=== PATIENT | male | born 1965 | race Asian ===

== ENCOUNTER 2020-11-08 18:52 | Emergency (ER) | payer OTHER ==
[~2020-11-08] VITALS: Ht 182.9 cm; Wt 85.1 kg
[~2020-11-08 18:52] MED LIST: ACET325T26 PO; ALBU0.63 NEB; ALBU90AE INH; ALLO100T64 PO; AMLO-211 PO; ASPI81TA45 PO; BLOO-1340 EXT; BUPR150T6 PO; DOCU100C33 PO; EMPA25TA PO; FLUT15.845 NS; GABA-826 PO; GEMF600T8 PO; HYDR25TA6 PO; INSU100C5 SQ-INSULIN; INSU100I13 SQ-INSULIN; INSU100V8 SQ-INSULIN; LOSA100T14 PO; METF850T10 PO; METH500T7 PO; METO25TA35 PO; OXYC5TAB3 PO; PANT40TA6 PO; POTA10TA4 PO; PRAZ5CAP2 PO; ROSU20TA2 PO; ZOLP10TA PO
[2020-11-08 19:52] LABS: MEAN CORPUSCULAR HEMOGLOBIN 29.5 pg (27.5-34.5); MEAN CORPUSCULAR HGB CONC 32.4 g/dL (33.2-36.2); MEAN PLATELET VOLUME 7.6 fL (7.4-10.4); PLATELET COUNT 264 x10^3/uL (130-400); RED BLOOD COUNT 3.44 x10^6/uL (4.38-5.82); RED CELL DISTRIBUTION WIDTH 16.3 % (9.4-14.8)
--- NOTE | 2020-11-08 20:00 | NUR ---
LATE ENTRY D/T CARE: PT CAME INTO ED DUE TO CHEST PRESSURE AND SOB, STATES "I FEEL LIKE IM HAVING A HARD TIME BREATHING" PT RESTING ON GURNEY, PLACED ON SPO2/BP/ECG MONITORING, VITALS STABLE AT THIS TIME. FAMILY AT BS, WCTM
[2020-11-08 20:05] LABS: ALBUMIN 3.4 g/dL (3.4-5.0); ANION GAP 6 mmol/L (5-15); CALCIUM 9.8 mg/dL (8.5-10.1); CHLORIDE 110 mmol/L (98-107)
[2020-11-08 20:11] LABS: CREATININE 2.66 mg/dL (0.7-1.3); TROPONIN I < 0.015 ng/mL (0.000-0.045)
[2020-11-08 20:29] LABS: MD SCAN
[2020-11-08 20:57] LABS: ANISOCYTOSIS 1+; BAND#(MANUAL) 0.13 x10^3/uL; BANDS%(MANUAL) 1 % (0-7); EOS#(MANUAL) 0.13 x10^3/uL (0.0-0.4); EOS% (MANUAL) 1 % (1-7); LYMPH#(MANUAL) 0.39 x10^3/uL (1-3.4); LYMPHS% (MANUAL) 3 % (22-44); MONOS#(MANUAL) 0.39 x10^3/uL (0.3-2.7); MONOS% (MANUAL) 3 % (2-9); MYELOCYTES# (MANUAL) 0.13 x10^3/uL (0-0); MYELOCYTES% (MANUAL) 1 % (0-0); SEG#(MANUAL) 11.83 x10^3/uL (1.8-6.8); SEGS% (MANUAL) 91 % (42-75)
[2020-11-08 20:59] LABS: <PLATELET ESTIMATE> ADEQUATE; <PLT MORPHOLOGY> NORMAL PLT MORPH
[2020-11-08] MEDS ORDERED: OMNIPAQUE 350 MG/ML, 100ML BOTTLE ONE (21:20)
[2020-11-08 22:23] VITALS: BP 138/84
--- NOTE | 2020-11-08 22:23 | NUR ---
PT TO AND FROM CT WITHOUT COMPLICATION. NAD, RESTING ON GURNEY, CTA RESULTED. PT UP FOR RECHECK. NO CHANGE IN CONDITON, WCTM.
[2020-11-08] MEDS ORDERED: DEXAMETHASONE 4 MG TABLET ONE ×2 (22:29→22:34)
[2020-11-08] MEDS ORDERED: DEXAMETHASONE 4 MG TABLET PO ONE (22:30)
--- NOTE | 2020-11-08 22:53 | NUR ---
Patient given discharge instructions and they have confirmed that they understand the instructions. Patient ambulatory with steady gait WITH WALKER, NAD, DENIES ADDITIONAL QUESTIONS OR NEEDS. NO PERSONAL BELONGINGS LEFT IN ROOM AT TIME OF DC
== END 2020-11-08 22:53 | disposition home or self-care (01) ==
LOC: ED 22:40
DX: U07.1 COVID-19 (principal); D64.9 Anemia, unspecified; N28.9 Disorder of kidney and ureter, unspecified; R05 Cough; R06.02 Shortness of breath; R06.00 Dyspnea, unspecified; R07.89 Other chest pain; E78.5 Hyperlipidemia, unspecified; E11.9 Type 2 diabetes mellitus without complications; I10 Essential (primary) hypertension; J45.909 Unspecified asthma, uncomplicated
CPT/HCPCS: 36415; 71045; 71275; 80048; 82040; 83880; 84484; 85025; 93005; 99285; Q9967

== ENCOUNTER 2020-11-11 01:22 | Emergency (ER) | payer OTHER ==
[~2020-11-11] VITALS: Ht 185.4 cm; Wt 75.0 kg
--- NOTE | 2020-11-11 01:43 | NUR ---
Placed on monitoring coordinator, cont pulse ox, call pinto, rails up.
[2020-11-11] MEDS ORDERED: LORazepam 2 MG/ML, 1ML ONE (01:52)
[2020-11-11] MEDS ORDERED: ALBUTEROL/IPRATROPIUM 2.5MG/0.5MG, 3 ML ONE ×2 (01:56→04:09)
[2020-11-11] MEDS ORDERED: LORazepam 2 MG/ML, 1ML IVPush ONE (02:00)
[2020-11-11] MEDS: ALBUTEROL/IPRATROPIUM 2.5MG/0.5MG, 3 ML NPPB SCH ×2 (02:09→04:12)
[2020-11-11 02:43] LABS: MEAN PLATELET VOLUME 7.7 fL (7.4-10.4); PLATELET COUNT 214 x10^3/uL (130-400)
[2020-11-11 02:47] LABS: ALANINE AMINOTRANSFERASE 26 U/L (12-78); ALBUMIN 3.5 g/dL (3.4-5.0); ANION GAP 10 mmol/L (5-15); CALCIUM 9.4 mg/dL (8.5-10.1); CHLORIDE 107 mmol/L (98-107); CREATININE 2.25 mg/dL (0.7-1.3)
[2020-11-11 02:48] LABS: BASOPHILS % (AUTO) 1 % (0-1); EOSINOPHILS % (AUTO) 0 % (1-7); LYMPHOCYTES % (AUTO) 17 % (22-44); MEAN CORPUSCULAR HEMOGLOBIN 30.4 pg (27.5-34.5); MEAN CORPUSCULAR HGB CONC 33.6 g/dL (33.2-36.2); MONOCYTES % (AUTO) 8 % (2-9); NEUTROPHILS % (AUTO) 74 % (42-75); RED BLOOD COUNT 3.32 x10^6/uL (4.38-5.82); RED CELL DISTRIBUTION WIDTH 15.8 % (9.4-14.8)
[2020-11-11 02:52] LABS: ALKALINE PHOSPHATASE 83 U/L (45-117); BILIRUBIN,TOTAL 0.5 mg/dL (0.2-1.0); MD NO; TOTAL PROTEIN 7.5 g/dL (6.4-8.2); TROPONIN I < 0.015 ng/mL (0.000-0.045)
--- NOTE | 2020-11-11 03:04 | NUR ---
pt O2 decreased when he falls asleep. 2L NC placed to keep O2 >90%
[2020-11-11 03:13] VITALS: BP 145/81
--- NOTE | 2020-11-11 04:14 | NUR ---
pt O2 sats on room air are between 95-98%. pt to be discharged with anti-anxiety RX. discharged to home with his
== END 2020-11-11 04:24 | disposition home or self-care (01) ==
LOC: ED 03:44
DX: R06.00 Dyspnea, unspecified (principal); D64.9 Anemia, unspecified; N28.9 Disorder of kidney and ureter, unspecified; F41.1 Generalized anxiety disorder; I10 Essential (primary) hypertension; J45.909 Unspecified asthma, uncomplicated; E78.5 Hyperlipidemia, unspecified; G89.29 Other chronic pain; E11.9 Type 2 diabetes mellitus without complications
CPT/HCPCS: 36415; 71045; 80053; 83880; 84484; 85025; 93005; 94640; 96374; 99285; J2060